=== PATIENT | male | born 1970 | race American Indian/Alaskan Native ===

== ENCOUNTER 2017-06-29 06:00 | Emergency (ER) | payer OTHER ==
[~2017-06-29] VITALS: Ht 182.9 cm; Wt 113.4 kg
== END 2017-06-29 07:18 | disposition home or self-care (01) ==
LOC: ED 06:00
PROC: 0HQ1XZZ Repair Face Skin, External Approach (ICD-10-PCS; principal; 2017-06-29)
DX: S01.112A Laceration without foreign body of left eyelid and periocular area, initial encounter (principal); Y08.89XA Assault by other specified means, initial encounter
CPT/HCPCS: 12011; 99283

== ENCOUNTER 2018-04-08 22:54 | Inpatient (IN) | payer OTHER ==
[~2018-04-08] VITALS: Ht 190.5 cm; Wt 102.1 kg
[2018-04-08] MEDS ORDERED: CEFDINIR300 MG PO (23:06)
[2018-04-08] MEDS ORDERED: OMEPRAZOLE20 MG PO (23:06)
[2018-04-08] MEDS ORDERED: GLUCOPHAGE500 MG PO (23:07)
--- NOTE | 2018-04-09 01:10 | NUR ---
PT ARRIVED TO CCU VIA STRETCHER WITH FLOAT NURSE AND SIGNIFICANT OTHER AT SIDE. PT IS ALERT AND ANSWERS QUESTIONS. PT ABLE TO TRANSFER FROM STRETCHER TO BED ON HIS OWN. PT IS FORGETFUL PER REPORT.
--- NOTE | 2018-04-09 01:30 | NUR ---
PT BLOOD SUGAR 368 TITRATED PER INSULIN GTT PER COLUMN SCALE PROTOCOL PER MDS ORDERS. INSULIN GTT AT 6MLS/HR. PT ADMITTED AND RESTING IN BED AT THIS TIME. PT ASSESSMENT COMPLETED. PT BREATH SOUNDS CLEAR. BOWEL TONES ACTIVE. PT DENIES ABD PAIN AT THIS TIME. PT HAS GENERALIZED WEAKNESS. PT IS SLOW TO RESPOND AND FORGETFUL. SO JAYNETTE AT BEDSIDE AND ANSWERD QUESTIONS PATIENT WAS NOT ABLE TO ANSWER ON HIS OWN. EDUCATED BOTH REGUARDING PLAN OF CARE FOR THE NIGHT. CALL LIGHT AT BEDSIDE. BED ALARM ON FOR SAFETY. URINAL AT BEDSIDE. WILL CONTINUE TO CLOSELY MONITOR.
--- NOTE | 2018-04-09 02:35 | NUR ---
ALL MEDICATIONS ADMINISTERED. PT IS RESTING IN BED AT THIS TIME. BS 348 PER TITRATION SCALE TURNED GTT TO 9MLS/HR. WILL RECHECK IN 1 HOUR. PT DENIES ANY OTHER NEEDS AT THIS TIME. BED ALARM REMAINS IN PLACE FOR PATIENT SAFETY. PT SO IS STAYING OVERNIGHT. WILL CONTINUE TO CLOSELY MONITOR.
--- NOTE | 2018-04-09 03:35 | NUR ---
PT BS 254. TITRATED GTT TO 6.3MLS/HR PER ORDERS. ALL INSULIN CHANGES DOUBLE CHECKED WITH 2ND RN INDIGO.
--- NOTE | 2018-04-09 04:30 | NUR ---
PT CALLED TO USE URINAL. PT URINATE 550MLS. PT BLOOD SUGAR CHECKED 234 INSULIN GTT CHANGED TO 5.1MLS/HR PER ORDERS. INDIGO SUMMERS VERIFIED. PT DENIES ANY OTHER NEEDS AT THIS TIME. WILL CONTINUE TO CLOSELY MONITOR.
--- NOTE | 2018-04-09 05:33 | NUR ---
PT BS 231 PER ORDER PARAMETERS CHANGED GTT TO 6.8MLS/HR. WILL RECHECK IN 1 HOUR. 2ND RN INDIGO VERIFIED GTT RATE. PT DENIES ANY NEEDS AT THIS TIME. WILL CONTINUE TO CLOSELY MONITOR.
--- NOTE | 2018-04-09 06:00 | NUR ---
CALLED MD PEREZ TO UPDATE REGUARDING PTS LABS. LAB [facility] HAVE NOT CROSSED OVER TO [place] AT THIS TIME. REGULATORY SPECIALIST READ VALUES TO STAFF VIA PHONE. PER MD WHEN BS <200 CHANGE IV FLUIDS TO D5NS W/20K AT 200MLS/HR. NO OTHER CHANGES AT THIS TIME. WILL CONTINUE TO CLOSELY MONITOR.
--- NOTE | 2018-04-09 06:30 | NUR ---
BS 192 CHANGED INSULIN GTT TO 5.6 MLS/HR. CHANGED FLUIDS TO D5NS WITH 20KCL AT 200MLS/HR PER ORDERS.
--- NOTE | 2018-04-09 07:20 | NUR ---
REPORT RC'D FROM ACCOUNTANT BUDGET. INSULIN GTT AND IV FLUIDS VERIFIED WITH ACCOUNTANT BUDGET NURSE. D5NS WITH 20 MEQ K RUNNING AT 200 ML/HR AND INSULIN GTT RUNNING AT 5.6 UNITS/HOUR. PT RESTING COMFORTABLY IN BED, NO DISTRESS NOTED, FSBS TO BE OBTAINED.
--- NOTE | 2018-04-09 07:30 | NUR ---
HOURLY BS OBTAINED AND NOTED TO BE 183. PER INSULIN PROTOCOL, INSULIN GTT TITRATED DOWN TO 4.8 UNITS/HOUR. WILL CONTINUE TO MONITOR AND TITRATE NEEDED.
--- NOTE | 2018-04-09 08:30 | NUR ---
FSBS 204, INSULIN GTT TITRATED TO 7 UNITS/HOUR, PER INSULIN PROTOCOL. PT C/O ALY 05/02 AND NAUSEA, PRN 650 MG TYLENOL AND 4 MG ZOFRAN GIVEN, WILL REASSESS.
--- NOTE | 2018-04-09 09:32 | NUR ---
FSBS 199, PER INSULIN PROTOCOL, INSULIN GTT TO REMAIN AT 7 UNITS/HR. PT ASSESSED FOR ALY AND NAUSEA. PT REPORTS IMPROVEMENT IN ALY, RATES 2/10, AND DENIES NAUSEA.
--- NOTE | 2018-04-09 10:46 | NUR ---
FSBS 178, PER INSULIN PROTOCOL, INSULIN GTT TITRATED DOWN TO 6 UNITS/HR.
--- NOTE | 2018-04-09 11:30 | NUR ---
FSBS 194, INSULIN GTT TITRATED TO 8.4 UNITS/HR.
--- NOTE | 2018-04-09 12:30 | NUR ---
PT RESTING COMFORTABLY IN BED. FSBS 166, INSULIN DRIP TITRATED TO 7.2 UNITS/HR. D5NS WITH 20 MEQ K CONTINUES AT A RATE OF 200 ML/HR. NO NAUSEA OR PAIN REPORTED AT THIS TIME.
--- NOTE | 2018-04-09 13:39 | NUR ---
FSBS 142, INSULIN GTT TITRATED DOWN TO 4.5 UNITS/HR.
--- NOTE | 2018-04-09 14:38 | NUR ---
FSBS 157, INSULIN GTT TITRATED TO 6 UNITS/HR.
--- NOTE | 2018-04-09 15:30 | NUR ---
FSBS 168, INSULIN GTT TITRATED TO 8.4 PER PROTOCOL. PT RESTING COMFORTABLY IN BED, DENIES PAIN OR NAUSEA. PROVIDED EDUCATION REGARDING NEW LAB RESULTS. ADVISED PT TO INCEASE ACTIVITY TOLERATED, PT AGREEABLE. CALL LIGHT WITHIN REACH. WILL CONTINUE TO MONITOR.
--- NOTE | 2018-04-09 16:30 | NUR ---
FSBS 158, INSULIN GTT TITRATED TO 6 UNITS/HR. D5NS 20 MEQ K CONTINUOUSLY RUNNING AT 200 ML/HR. PT ASSISTED TO CHAIR, TOLERATED WELL, STATES IMPROVEMENT IN DIZZINESS. PERSONAL HYGIENE ADDRESSED AND PT ASSISTED WITH ADLS. ORAL CARE DISCUSSED. LINEN CHANGED. CALL LIGHT WITHIN REACH. WILL CONTINUE TO MONITOR.
--- NOTE | 2018-04-09 17:30 | NUR ---
FSBS 187, INSULIN GTT TITRATED TO 8.4 UNITS/HR.
--- NOTE | 2018-04-09 17:30 | NUR ---
FSBS 196, INSULIN GTT TITRATED TO 11.2 UNITS/HR. PT C/O NAUSEA, NEST DOSE OF ZOFRAN NOT DUE AT THIS TIME, PROIVER NOTIFIED, NEW ORDERS TO BE OBTAINED.
--- NOTE | 2018-04-09 18:46 | NUR ---
INSULIN GTT CONTINUES PER PROTOCOL. D5NS WITH 20 MEQ K CONTINUOUS AT 200 ML/HR. LAC AND RAC IV SITE WNL, FLUSHING WELL, DRESSINGS INTACT. PT A&O X4, SLOW TO RESPOND, FLAT AFFECT NOTED, BUT PLEASANT AND RECEPTIVE TO EDUCATION. HR HAS REMAINED IN THE 70-80'S AND IN SR. LUNGS HAVE REMAIN CLEAR THROUGHOUT BILATERALLY, OCCASIONAL COUGH WITH THIN GREEN SPUTUM. PT C/O NAUSEA W/O EMESIS. PT ON CLEAR LIQUID SUGAR FREE DIET AND TOELERATING WELL. URINE OUTPUT ADEQUATE, NO BM. PT C/O OF ALY ON AND OFF THROUGHOUT SHIFT, PRN TYLENOL GIVEN WITH RELIEF. OVERALL, PT RESTED MOST OF THE DAY, PT ENCOURAGED TO INCEASE ACTIVITY TOLERATED, EDUCATION POVIDED THROUGHOUT SHIFT.
--- NOTE | 2018-04-09 19:30 | NUR ---
PT SHIFT REPORT RECEIVED FROM DAY SHIFT RN. PT IS RESTING IN CHAIR AT THIS TIME WITH HIS SO IN THE ROOM. PT IS ALERT AND ORIENTED AND MORE INVOLVED IN CONVERSATIONS THAN THE PREVIOUS NIGHT. PT STATES "I FEEL MUCH BETTER THAN WHEN I FIRST CAME IN". PT BS 180 TITRATED INSULIN GTT TO 9.6MLS/HR PER ORDERS. PT DRINKING CLEAR LIQUID AT THIS TIME. WILL CONTINUE TO CLOSELY MONITOR.
--- NOTE | 2018-04-09 20:45 | NUR ---
BS 187 PER ORDETS LEFT INSULINE GTT THE SAME RATE. PT COMPLAINS OF MILD NAUSEA. UPDATED MD REGUARDING PT STATUS AND CURRENT LABS. WILL CONTINUE TO CLOSELY MONITOR.
--- NOTE | 2018-04-09 21:13 | NUR ---
PER MD TRANSITION PT TO SUB Q INSULINE. GIVE SUB Q LANTUS AND TURN INSULIN GTT OFF IN 1 HOUR. PT EDUCATED REGUARDING PLAN AND HAS NO FURTHER QUESTIONS. WILL CONTINUE TO CLOSELY MONITOR.
--- NOTE | 2018-04-09 22:00 | NUR ---
INSULIN GTT DC'D PER ORDER. CONTINUOUS FLUIDS DC'D PER MD. BLOOD SUGAR CHECKED AND SUB-Q INSULIN GIVEN. PT DIET INCREASED TO ADA DIET AND PT REQUESTED A SMALL SNACK. GAVE SNACK AND FRECH WATER AND TEA AT BEDSIDE. PT DENIES ANY OTHER NEEDS AT THIS TIME. PT REMAINS AWAKE AND IN CHAIR. PT CALLS APPROPRIATELY AND HAS SO AT BEDSIDE. WILL CONTINUE TO CLOSELY MONITOR AT THIS TIME.
--- NOTE | 2018-04-10 00:15 | NUR ---
PT CALLED TO GET UP TO GO TO BED. PT STOOD AND TRANSFERED ON HIS OWN WITH NO ISSUES. VITALS TAKEN AND FRESH WATER AT BEDSIDE. PT DENIES ANY OTHER NEEDS AT THIS TIME. WILL CONTINUE TO CLOSELY MONITOR.
--- NOTE | 2018-04-10 02:00 | NUR ---
PT BS 238 GAVE SLIDING SCALE INSULIN. PT REQUESTING SUGAR FREE PUDDING FOR SNACK. FRESH WATER AT BEDSIDE. PT DENIES ANY OTHER NEEDS AT THIS TIME. WILL CONTINUE TO CLOSELY MONITOR.
--- NOTE | 2018-04-10 04:33 | NUR ---
PT URINATED IN URINAL. PT CALLED TO HAVE IT EMPTIED. PT REQUESTING FRESH WATER. PT IS SLEEPING OFF AND ON TONIGHT. WILL CONTINUE TO ENCOURAGE REST AT THIS TIME. WILL CLOSELY MONITOR.
--- NOTE | 2018-04-10 07:01 | NUR ---
BREAKFAST ORDERED. PT RESTING IN BED AT THIS TIME. URINAL EMPTIED. PT DENIES ANY NEEDS AT THIS TIME. WILL CONTINUE TO CLOSELY MONITOR.
--- NOTE | 2018-04-10 08:10 | NUR ---
REPORT RC'Barney PETERS LEATHER DRESSER NURSE. PT RESTING COMFORTABLY IN BED, S/O AT BEDSIDE. PT IS SALINE LOCKED AT THIS TIME. ADA BREAKFAST AT BEDSIDE. MORNING ASSESSMENT TO BE COMPLETED.
--- NOTE | 2018-04-10 08:30 | NUR ---
RC'D ORDER FOR ABD U/S, PT TO BE NPO AT THIS TIME. PT ADVISED OF TESTING AND NPO STATUS, PT AGREEABLE, ALL QUESTIONS ANSWERED AT THIS TIME.
--- NOTE | 2018-04-10 10:19 | NUR ---
DR. PEREZ AT BEDSIDE ASSESSING PT AND UPDATING PLAN OF CARE.
--- NOTE | 2018-04-10 10:45 | NUR ---
PHONE CALL TO [facility] TO SPEAK WITH COMMUNITY HEALTH NURSE. SPOKE WITH NAREN SHARMA PT AND UPDATING PT'S PRIMARY CARE PROVIDER'S TEAM. GIVEN THE NEW ONSET OF DM AND RECENT HOSPITALIZATION WITH DKA, COMMUNITY [facility] NURSES WILL BE IN FOR A CARE CONFERENCE AT 2 PM TODAY.
--- NOTE | 2018-04-10 12:50 | NUR ---
PT TRANSFERED FROM CCU, REPORT TAKEN FROM MELINA MONCADA. PT RESTING IN CHAIR. FLAT AFFECT NOTED. PT RESPONDS APPROPRIATLY TO QUESTIONS. PT REPORTS 7/10 PAIN IN HIS LEFT SHOULDER. SEE MAR FOR MEDICATION GIVEN. ASSESSEMENT DONE. WATER PROVIDED. MEDICATIONS GIVEN (SEE MAR). MAGNEISUM CONTINUES INFUSING VIA IV PUMP. PT ORIENTED TO ROOM. PT DEMONSTRATES UNDERSTANDING OF HOW TO CALL THE NURSE. PT STATES HE HAS NO ADDITIONAL QUESTIONS OR CONCERNS AT THIS TIME.
--- NOTE | 2018-04-10 12:52 | NUR ---
PT IN BED, FAMILY BY HIS SIDE. IMAGING HAD JUST LEFT, FELT HE DID NOT NEED TO BE BOTHERED. JUST SAID JORGE, INTRO MYSELF, AND TOLD HIM HE HAS HAD ENOUGH OF US FOR NOW-HE KIND OF KNODDED. HE REACHED OUT HIS HAND TO SHAKE MINE, WILL FOLLOW NEEDED. GOD BLESS HIM
--- NOTE | 2018-04-10 15:59 | NUR ---
afternoon assessment and medications due. THIS RN TO BEDSIDE. PT UP TO CHAIR. PT DENIES PAIN AND NAUSEA. ASSESSMENT DONE. MEDICATION GIVEN (SEE MAR). PT REQUESTS COFFEE AND BROTH. GIVEN REQUESTED. PT STATES HE HAS NO ADDITIONAL REQUESTS OR COMPLAINTS. SIGNIFICANT OTHER AT CHAIRSIDE. CALL LIGHT WITHIN REACH.
--- NOTE | 2018-04-10 16:45 | NUR ---
CARE CONFERENCE ATTENDEES: PT, PT LIFE PARTNER, RASHIDA PATEL AND NAREN HANSON, FROM [facility]. STAFF: MYSELF CASE MANAGEMENT, MIR RN DISCUSSION WAS HAD WITH THE PT REGARDING SOME OF THE THINGS TO EXPECT WHILE HERE IN THE HOSPITAL--EDUCATION REGARDING CHECKING BLOOD SUGARS, TEACHING AND REGULATING DIETARY NEEDS, ETC. [facility] NURSES STATED WHEN HE IS DC'D TO STOP AND GROUNDS FOREMAN A GLUCOSE MONITOR, AND THEY WOULD BE ABLE TO BE THERE TO HELP WITH EDUCATION, WHEN ITS FIRST GIVEN YOU TEND TO FOR GET ABOUT SOME OF THE DETAILS. PT AND LIFE PARTNER VERY AGREEABLE ABOUT THIS. PT DID MENTION HE HAD TRIED TO GET INTO DETOX THIS WEEK, BUT STATES HE CHANGED HIS MIND AND DID NOT GO INTO DETOX--STATES HE IS DETOXING FROM ALCOHOL. DENIES ANY DRUG USEAGE. VERY OPEN TO LEARN.
--- NOTE | 2018-04-10 16:56 | NUR ---
DINNER TIME APPROACHING. THIS RN TO BEDSIDE FOR CBG CHECK AND TO DO PT EDUCATION. THIS RN DEOMSTRATES FOR PT HOW TO CHECK BLOOD SUGAR. PT ASSISTS RN WITH CHECK, DEOMONSTRATING UNDERSTANDING OF CLEANING FINGER, FINGER PRICK, AND WIPING AWAY FIRST DROP OF BLOOD. BLOOD SUGAR = 287. PT WATCHING TV WAITING FOR DINNER. CALL LIGTH WITHIN REACH. NO REQUESTS OR COMPLAINTS.
--- NOTE | 2018-04-10 17:03 | NUR ---
Medications reconciled with pharmacy records, RX bottles and patient interview
--- NOTE | 2018-04-10 18:53 | NUR ---
PT ARRIVED FROM CCU TODAY FOR DKA. MONITORING BLOOD SUGARS. TEACHING PT TO TAKE HIS OWN BLOOD SUGAR AND GIVE HIS OWN INSULIN. TYLENOL GIVEN FOR SHOULDER PAIN. IV MAGNESIUM GIVEN TODAY. CARE CONFERENCE WITH RENEE AND DAMON QUINN. ABDOMINAL ULTRASOUND TODAY. 1 PERSON SBA, PT USES CALL LIGHT INCONSISTANTLY.
--- NOTE | 2018-04-10 19:04 | NUR ---
BEDSIDE REPORT RECEIVED FROM MELINA HESTER. PT SITTING UP IN CHAIR, GIVEN BROTH REQUESTED. IVS SALINE LOCKED. FAMILY AT BEDSIDE. PT HAS NO ADDL REQUESTS, CALL LIGHT IN REACH.
--- NOTE | 2018-04-10 20:40 | NUR ---
ROUNDED CHARGE. PATIENT IS RESTING IN RECLINER. SENIOR UI DESIGNER IN THE ROOM ASSISTING WITH PREPPING PATIENT FOR A SHOWER. PATIENT DENIES ANY COMMENTS, QUESTIONS, OR CONCERNS. NO FURTHER NEEDS AT THIS TIME.
--- NOTE | 2018-04-10 20:48 | NUR ---
PATIENT WANTS SHOWER. STANDBY ASSIST, INDEPENDENT TAKING SHOWER PER MELINA SAENZ. WRAPPED LEFT AND RIGHT ARM IV SITE.
--- NOTE | 2018-04-10 22:00 | NUR ---
PT ASSESSMENT COMPLETE. CBG 337, PT ABLE TO CHECK OWN BLOOD SUGAR, ADMINISTER INSULIN, EDUCATION PROVIDED. PT OUT OF SHOWER, IVS SALINE LOCKED. LUNGS CLEAR THROUGHOUT ALL LOBES. BOWEL TONES ACTIVE X 4, ABD SOFT, PT DENIES NAUSEA. CSM INTACT BUE, BLE, MARCUS HOSE IN PLACE. PT UP IN CHAIR, GIVEN TEA, ICE WATER, BROTH REQUESTED. CALL LIGHT IN REACH.
--- NOTE | 2018-04-11 | NUR ---
CALL LIGHT ANSWERED, PT'S URINAL EMPTIED, SBA TO RESTROOM FOR VOID, GAIT UNSTEADY, PT REFUSES WALKER. PT GIVEN GLUCERNA DIABETIC DRINK, SUGAR FREE PUDDING AND SUGAR FREE JELLO REQUESTED. CALL LIGHT AND PERSONAL SUPPLIES IN REACH.
--- NOTE | 2018-04-11 00:10 | NUR ---
IN PT ROOM FOR FARM MECHANIC, PT UP IN CHAIR, GIVEN ADDL SUGAR FREE PUDDING, ICE WATER REQUESTED. PT DENIES TRANSFERRING TO BED AT THIS TIME, WATCHING TV. CALL LIGHT IN REACH.
--- NOTE | 2018-04-11 02:25 | NUR ---
PT ASSESSMENT COMPLETE. CBG 341, ACCU CHECK AND SS INSULIN ADMINISTERED BY PT. LUNGS CLEAR THROUGHOUT ALL LOBES, BOWEL TONES ACTIVE X 4, PT DENIES PAIN, DENIES NAUSEA. URINAL EMPTIED. PT GIVEN BROTH, SUGAR FREE JELLO, DECAF TEA. CALL LIGHT IN REACH.
--- NOTE | 2018-04-11 04:01 | NUR ---
CHECKED ON PT, APPEARS TO BE SLEEPING, EYES CLOSED, TV AND LIGHTS OFF IN ROOM, VISIBLE CHEST RISE, NON-LABORED BREATHING.
--- NOTE | 2018-04-11 06:20 | NUR ---
CHECKED ON PT, APPEARS TO BE SLEEPING, EYES CLOSED, BREATHING NON-LABORED.
--- NOTE | 2018-04-11 06:47 | NUR ---
PT ABLE TO SELF CHECK BLOOD SUGARS, ADMINISTER OWN INSULIN X 2 WITH INSTRUCTION. PT AWAKE FOR MOST OF NIGHT, SNACKING, ADA DIET. IVS SALINE LOCKED WNL. PT USING CALL LIGHT APPROPRIATELY. BOWEL PREP INITIATED LAST KNOWN BM 04/07.
--- NOTE | 2018-04-11 07:19 | NUR ---
MEDICATION AND CBG DUE. THIS RN TO BEDSIDE. PT RESTING WITH EYES CLOSED, AWAKENS TO VOICE. PT ASSISTED TO TAKE HIS OWN BLOOD SUGAR. PT DEMONSTARTES PROPER TECHNIQUE. MEDICATION GIVEN (SEE MAR). ASSESSMENT DONE. PT DRIFTS BACK TO SLEEP. RR = 16 BPM. URINAL EMPTIED. BED RAILS UP. CALL LIGHT WITHIN REACH.
--- NOTE | 2018-04-11 08:15 | NUR ---
BREAKFAST ARRIVED. MEDICATIONS GIVEN ORDERED (SEE MAR). PT GAVE HIS OWN INSULIN. CORRECT TECHNIQUE NOTED BY THIS RN. PT FINISHING BREAKFAST. NO REQUESTS OR COMPLAINTS. BED RAILS UP. CALL LIGHT WITHIN REACH.
--- NOTE | 2018-04-11 09:59 | NUR ---
MEDICATIONS DUE. THIS RN TO BEDSIDE. PT WATCHING TV. MEDICATIONS GIVEN ORDERED (SEE MAR). TEA PROVIDED PER PT REQUESTS. BED RAILS UP. CALL LIGHT WITHIN REACH.
--- NOTE | 2018-04-11 10:17 | NUR ---
THIS CNA2 ORDERED PT BRK, EMPTYED URNIAL, CHANGED LINENS, FRESH ICE WATER, SET UP FOR BRK.
--- NOTE | 2018-04-11 11:50 | NUR ---
NOON CBG, INSULIN AND FOCUSSED ASSESSMENT DUE. THIS RN TO BEDSIDE. VETERAN APPEALS REVIEWER DOING BLOOD SUGAR WITH PT. PT DEMONSTRATES CORRECT TECHNIQUE. PT GIVES INSULIN TO SELF CORRECTLY. THIS RN NOTES THAT PT HAS ORANGE JUICE ORDERED FOR LUNCH. EDUCATION DONE R/T HIGH SUGAR FOODS THAT CAN SPKIE BLOOD SUGAR. PT ACKNOWLEDGES EDUCATION AND STATES HE WANTS JUICE "OF SOME KINDE." PT AGREEABLE TO LIGHT CRANBERRY JUICE, GIVEN REQUETED WITH ICE. PT REPORTS NAUSEA AND "A LITTLE DIZZINESS" WHEN HE GETS UP TO USE RESTROOM. PT REFUSES NAUSEA MEDICATION AT THIS TIME. PT EATING LUNCH. BED RAILS UP. CALL LIGHT WITHIN REACH.
--- NOTE | 2018-04-11 12:10 | NUR ---
MD NOTIFIED OF PTS BLOOD SUGAR, NAUSEA, AND DIZZINESS. NO ACTION NEEDED AT THIS TIME. CONTINUE TO OBSERVE AND LIMIT CARBOHYDRATE/SUGAR DIET CHOICES. ADDITONAL SOUP AND CHEESE ORDERED FOR PTS LUNCH. PT EDUCATION REGARDING JUICE DONE. PT VERBALIZES UNDERSTANDING AND STATES HE WILL DRINK TEA INSTEAD OF JUICE. JUICE REMOVED FROM ROOM. TEA WITH TRUVIA PROVIDED REQUESTED. BED RAILS UP. CALL LIGHT WITHIN REACH.
--- NOTE | 2018-04-11 13:22 | NUR ---
MEDICATION DUE. THIS RN TO BEDSIDE. PT WATCHING TV. REQUESTS TEA AND BROTH TO DRINK/EAT. MEDICATION GIVEN ORDERED. PT DENIES TROUBLE WITH ACID REFLUX AND STATES HE DOES NOT NEED MAALOX AT THIS TIME. TEA AND BROTH GIVEN REQUESTED. NO ADDITIONAL REQUESTS OR COMPLAINTS. BED RAILSUP. CALL LIGHT WITHIN REACH.
--- NOTE | 2018-04-11 14:42 | NUR ---
PT SITTING UP IN BED. RATHER FLAT AFFECT, BUT POLITE AND RESPONDS TO QUESTIONS POSED TO HIM. PT ADMITTED THAT HE IS STILL KIND OF TRYING TO ASSESS THE FULL IMPLICATIONS OF WHAT HE CALLED HIS "NEW" DIAGNOSIS. A VERY ENGAGING AND GOOD CONVERSATION WITH PT, HE REQUESTED PRAYER. WILL FOLLOW NEEDED
--- NOTE | 2018-04-11 16:31 | NUR ---
AFTERNOON ASSESSMENT AND MEDICATION DUE. THIS RN TO BEDSIDE. PT UP IN BED, SIGNIFICANT OTHER COMBING PTS HAIR. PT STATES HE IS STILL "A LITTLE" NAUSEATED. PT AGREEABLE TO MEDICATION FOR NAUSEA. ASSESSMENT DONE. MEDICATION GIVEN (SEE MAR). PT ASSISTED IN TAKING HIS OWN BLOOD SUGAR. PT WATCHING MOVIE, BROTH AND TEA PROVIDED. NO ADDITIONAL REQUESTS OR COMPLAINTS. BED RAILSUP. CALL LIGHT WITHIN REACH.
--- NOTE | 2018-04-11 17:18 | NUR ---
DINNER ARRIVED. INSULIN DUE. PT ADMINISTERS HIS OWN INSULIN WITH GOOD TECHNIQUE. PT REQUESTS A VEGETABLE TRAY. ORDER CALLED TO DIETARY. NO ADDITIONAL REQUESTS OR COMPLAINTS. BED RAILS UP CALL LIGHT WITHIN REACH.
--- NOTE | 2018-04-11 18:41 | NUR ---
PT HERE FOR DKA, PT LEARNING TO GIVE HIS OWN INSULIN AND CHECK CBGS. SLIDING SCALE AND BASELINE INSULIN DOESES INCREASED TODAY. PT EDUCATION R/T FOOD CHOICES DISCUSSED TODAY. [facility] LABORER CONSULT SCHEDULED FOR TOMORROW. PT USING CALL LIGHT APPROPRITALY.
--- NOTE | 2018-04-11 19:06 | NUR ---
BEDSIDE REPORT RECEIVED FROM MELINA HESTER. PT AWAKE, SITTING UP IN BED. IV SITES SALINE LOCKED. PT GIVEN BROTH REQUESTED. URINAL EMPTIED. CALL LIGHT IN REACH. NO ADDL REQUESTS AT THIS TIME.
--- NOTE | 2018-04-11 20:34 | NUR ---
PT ASSESSMENT COMPLETE. PT DENIES NAUSEA, BOWEL TONES ACTIVE X 4, ABD SOFT, NON-TENDER. CBG 279, PT ABLE TO DRAW UP OWN SS INSULIN, EDUCATION PROVIDED. SS AND SCHEDULED INSULIN ADMINISTERED BY PT, SIGNIFICANT OTHER ALSO IN ROOM FOR EDUCATION. LUNGS CLEAR THROUGHOUT ALL LOBES, SBA TO RESTROOM FOR VOID. PT BACK IN BED. CSM INTACT. CALL LIGHT AND PERSONAL SUPPLIES IN REACH.
--- NOTE | 2018-04-11 23:00 | NUR ---
CHECKED ON PT, AWAKE, SITTING UP IN BED. PT HAD LARGE FORMED BROWN BM. GIVEN BROTH REQUESTED. CALL LIGHT IN REACH. NO ADDL REQUESTS.
--- NOTE | 2018-04-12 01:46 | NUR ---
CBG 216 AT THIS TIME, ACCU CHECK AND SS INSULIN ADMINISTRATION COMPLETED BY PT. PT ASSESSMENT COMPLETE. DENIES NAUSEA. BOWEL TONES ACTIVE X 4, ABD SOFT. LUNGS CLEAR THROUGHOUT ALL LOBES, HR REGULAR RHYTHM. CSM INTACT BUE, BLE. PT HAD LIQUID BM, URINAL EMPTIED. CALL LIGHT IN REACH, LIGHTS OFF IN ROOM. PT WATCHING MOVING ON CELL PHONE. GIVEN DECAF TEA REQUESTED.
--- NOTE | 2018-04-12 04:28 | NUR ---
CHECKED ON PT, APPEARS TO BE SLEEPING, EYES CLOSED, BREATHING NON-LABORED. LIGHTS OFF IN ROOM.
--- NOTE | 2018-04-12 05:28 | NUR ---
BM THIS SHIFT. SBA. PT ABLE TO CHECK OWN BLOOD SUGARS, DRAW UP INSULIN DOSE AND ADMINISTER WITH MINIMAL INSTRUCTION, SIGNIFICANT OTHER ALSO PROVIDED WITH EDUCATION. ADA DIET. IV SITE SALINE LOCKED WNL. USING CALL LIGHT APPROPRIATELY.
--- NOTE | 2018-04-12 05:45 | NUR ---
CALL LIGHT ANSWERED, PT GIVEN DECAF TEA, ICE WATER REQUESTED. MEDICATIONS ADMINISTERED AT THIS TIME. URINAL EMPTIED. IS AND OS COMPLETE. FABRIZIO CAMPOS NOW IN ROOM FOR VITALS. PT HAS NO ADDL REQUESTS. CALL LIGHT IN REACH.
--- NOTE | 2018-04-12 08:30 | NUR ---
THIS RN OBSERVED PT OBTAIN BLOOD SUGAR INDEPENDENTLY. PT WAS ABLE TO DETERMINE APPRORIATE AMOUNT OF INSULIN NEEDED BASED ON ORDERS AND SLIDING SCALE. PREPPED VIAL AND SKIN, PARMJIT UP MEDS, AND INJECTED INSULIN APPROPRIATELY. PT DENIES PAIN OR OTHER CONCERNS THIS AM. ALERT AND ORIENTED. PT SITTING UP AND EATING BREAKFAST AFTER SELF ADMINISTERING INSULIN. THIS RN PROVIDED SBA TO PT TO RESTROOM PRIOR TO MED PASS. PT VOIDED, BRUSHED TEETH, AND WASHED FACE. AMB BACK TO BED. CALL BUTTON WITHIN REACH.
[2018-04-12] MEDS ORDERED: LIPITOR10 MG PO (08:47)
[2018-04-12] MEDS ORDERED: BLOOD GLUCOSE1 EAC1 MISC (08:51)
[2018-04-12] MEDS ORDERED: BLOOD LANCETS1 EACH MISC (08:53)
[2018-04-12] MEDS ORDERED: BLOOD GLUCOSE1 EACH MISC (08:53)
[2018-04-12] MEDS ORDERED: SUCRALFATE1 GM PO (08:55)
[2018-04-12] MEDS ORDERED: LANTUS100 UNITS/ SUB-Q (08:55)
[2018-04-12] MEDS ORDERED: HUMALOG100 UNITS/ SUB-Q ×2 (08:59→09:00)
[2018-04-12] MEDS ORDERED: CLOTRIMAZOLE10 MG MM (09:01)
--- NOTE | 2018-04-12 10:37 | NUR ---
GIVEN ICE WATER AND HOT TEA PER REQUEST.
--- NOTE | 2018-04-12 11:23 | NUR ---
PT RECIEVING EXTENSIVE EDUCATION FROM BABS IN PHARMACY ON NEW MEDICATION, DIABETES INFO FROM TECHNICIAN AUTOMATIC SYDNI, AND NUTRITION INFO FROM FRANCES AVICULTURIST.
--- NOTE | 2018-04-12 12:22 | NUR ---
PT UP IN RECLINER EATING LUNCH. ADMINISTERED LUNCH TIME INSULIN INDEPENDENTLY. BOTH IV'S DC'D BY SHARATH DINH, CATH TIP INTACT, SITES WITHOUT REDNESS OR OTHER SIGNS OF INFECTION. PT STATES HE WOULD LIKE TO SHOWER AFTER HE EATS, SHOWER SET UP. CALL LIGHT WITHIN REACH.
--- NOTE | 2018-04-12 13:35 | NUR ---
PT SHOWERED INDEPENDENTLY. PT DRESSED IN PERSONAL CLOTHING. SITTING UP IN CHAIR WAITING FOR RIDE TO GET HERE. CALL LIGHT WITHIN REACH.
== END 2018-04-12 16:00 | disposition home or self-care (01) | DRG 638 ==
LOC: ED 22:54 → CCU 22:55 → MS 04-09 00:50
PROVIDERS: ADMIT Internal Medicine
DX: E11.10 Type 2 diabetes mellitus with ketoacidosis without coma (principal); B37.0 Candidal stomatitis; F10.20 Alcohol dependence, uncomplicated; K70.0 Alcoholic fatty liver; D69.6 Thrombocytopenia, unspecified; D64.9 Anemia, unspecified; E87.6 Hypokalemia; E83.42 Hypomagnesemia; E78.2 Mixed hyperlipidemia; F17.200 Nicotine dependence, unspecified, uncomplicated; Z79.2 Long term (current) use of antibiotics; Z79.84 Long term (current) use of oral hypoglycemic drugs; Z79.899 Other long term (current) drug therapy
CPT/HCPCS: 36415; 71045; 76705; 80048; 80053; 80061; 81001; 82010; 82607; 82746; 82800; 83036; 83519; 83540; 83690; 83735; 84466; 84681; 85025; 86337; 86341; 86703; 96361; 96374; 96375; 99285; G0480; J1650; J1815; J2405; J3475; J7030